=== PATIENT | female | born 1995 ===

== ENCOUNTER → 2018-06-05 | Emergency (ER) | payer OTHER ==
[~2018-06-05] VITALS: Ht 152.4 cm; Wt 68.5 kg
[~2018-06-05] MED LIST: BACTRIM DS TAB1 EACH PO; HIBICLENS118 ML TOP; IBUPROFEN800 MG PO; MUPIROCIN22 GM TOP
== END | disposition home or self-care (01) ==
LOC: ER 12:39
DX: L03.116 Cellulitis of left lower limb (principal)

== ENCOUNTER 2018-09-10 10:37 | Emergency (ER) | payer OTHER ==
[~2018-09-10] VITALS: Ht 152.4 cm; Wt 68.0 kg
== END 2018-09-10 19:51 | disposition home or self-care (01) ==
LOC: ER 10:37
DX: O26.891 Other specified pregnancy related conditions, first trimester (principal); K52.89 Other specified noninfective gastroenteritis and colitis; O98.511 Other viral diseases complicating pregnancy, first trimester; J11.1 Influenza due to unidentified influenza virus with other respiratory manifestations; Z34.01 Encounter for supervision of normal first pregnancy, first trimester